=== PATIENT | female | born 1970 | race Caucasian/White ===

== ENCOUNTER 2021-10-03 15:35 | Emergency (ER) | payer SELFPAY ==
[~2021-10-03] VITALS: Ht 160 cm; Wt 58.0 kg
--- NOTE | 2021-10-03 15:55 | EKG ---
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
--- NOTE | 2021-10-03 15:58 | PHYS DOC ---
General Adult EDM: Chief Complaint: SHORTNESS OF BREATH HPI: HPI: 51-year-old female presents with chest pain and episodes of shortness of breath today. She has had 2 or 3 of these episodes. She feels a little bit of central chest discomfort up to 4 out of 10. She currently has no pain. With these epi sodes she feels like she cannot take a deep breath. She had nausea with one episode today but all that has resolved. Patient did try one of her daughters albuterol inhalers this morning with some relief. She is a smoker daily. She is on no medications. No previous cardiac history. Denies fever or chills. Review of Systems: Review of Systems: Constitutional: Denies fever or chills Eyes: Denies change in visual acuity HENT: Denies nasal congestion or sore throat Respiratory: shortness of breath Cardiovascular: Chest pain GI: Denies abdominal pain, nausea, vomiting, bloody stools or diarrhea : Denies dysuria Musculoskeletal: Denies back pain or joint pain Integument: Denies rash Neurologic: Denies headache, focal weakness or sensory changes Endocrine: Denies polyuria or polydipsia Lymphatic: Denies swollen glands Psychiatric: Denies depression or anxiety Physical Exam: PE: Constitutional: Well developed, well nourished, no acute distress, non-toxic appearance. [] HENT: Normocephalic, atraumatic, bilateral external ears normal, oropharynx moist, no oral exudates, nose normal. [] Eyes: PERRLA, EOMI, conjunctiva normal, no discharge. [] Neck: Normal range of motion, no tenderness, supple, no stridor. [] Cardiovascular: Heart rate 96, regular rhythm, no murmur [] Lungs & Thorax: Bilateral breath sounds diminished but clear to auscultation [] Abdomen: Bowel sounds normal, soft, no tenderness, no masses, no pulsatile masses. [] Skin: Warm, dry, no erythema, no rash. [] Back: No tenderness, no CVA tenderness. [] Extremities: No tenderness, no cyanosis, no clubbing, ROM intact, no edema. [] Neurologic: Alert and oriented X 3, normal motor function, normal sensory function, no focal deficits noted. [] Psychologic: Affect normal, judgement normal, mood normal. [] EKG: EKG: Sinus rhythm, rate 96, normal axis, no ST elevation or depression. [] Radiology/Procedures: Radiology/Procedures: [] Impressions: Single view of the chest. 10/03/2021 4:00 PM Indication: Shortness of breath: Comparison: None Findings: No pleural effusion, or focal infiltrate is seen heart size is normal. No definitive pneumothorax is seen. Diffuse interstitial coarsening is noted. Lucency in the lung apices likely represents emphysematous change. IMPRESSION: Diffuse interstitial coarsening and and possibly apical emphysematous changes. No other acute cardiopulmonary process seen. Electronically signed by: Geoffrey Navarro MD (10/03/2021 4:30 PM) [id number] DICTATED AND SIGNED BY: GEOFFREY NAVARRO MD DATE: 10/03/211627 CC: CANDIDO TROY DO; PCP,NO ~ Heart Score: C/O Chest Pain: Yes HEART Score for Chest Pain: HEART Score for Chest Pain Response (Comments) Value History Slighlty/Non-Suspicious 0 ECG Normal 0 Age >45 - < 65 1 Risk Factors 1 or 2 Risk Factors 1 Troponin < Normal Limit 0 Total 2 Risk Factors: Risk Factors: DM, Current or recent (<one month) smoker, HTN, HLP, family history of CAD, obesity. Risk Scores: Score 0 - 3: 2.5% MACE over next 6 weeks - Discharge Home Score 4 - 6: 20.3% MACE over next 6 weeks - Admit for Clinical Observation Score 7 - 10: 72.7% MACE over next 6 weeks - Early Invasive Strategies Course & Med Decision Making: Course & Med Decision Making Pertinent Labs and Imaging studies reviewed. (See chart for details) The patient's EKG is unremarkable. Labs are unremarkable. Troponin is negative. Chest x-ray shows some emphysematous change. See discharge for more details. No other acute findings. Not exactly sure what is causing the patient's episodes. Could be the weather changes or that she is just noticing her emphysema. I have advised that she stop smoking immediately. Have also advised that she establish with a primary physician and see a seafood clerk. She is stable for discharge at this time. [] Dragon Disclaimer: Dragon Disclaimer: This electronic medical record was generated, in whole or in part, using a voice recognition dictation system. Departure Departure: Impression: Primary Impression: Emphysema lung Disposition: 01 HOME / SELF CARE / HOMELESS Condition: STABLE Referrals: PCPKYUNG (PCP) Patient Instructions: Shortness of Breath, [id number] CANDIDO TROY DO Oct 03, 2021 15:58
[2021-10-03 16:23] LABS: BASO % 0 % (0-3); EOS % 0 % (0-3); HEMATOCRIT 39.8 % (36.0-47.0); HEMOGLOBIN 13.5 g/dL (12.0-15.5); LYMPH # 3.5 x10^3/uL (1.0-4.8); LYMPH % 35 % (24-48); MEAN CORPUSCULAR HEMOGLOBIN 34 pg (25-35); MEAN CORPUSCULAR HGB CONC 34 g/dL (31-37); MEAN CORPUSCULAR VOLUME 100 fL (79-100); MONO # 0.6 x10^3/uL (0.0-1.1); MONO % 6 % (0-9); NEUT # 5.9 x10^3uL (1.8-7.7); NEUT % 58 % (31-73); PLATELET COUNT 263 x10^3/uL (140-400); RED BLOOD COUNT 3.97 x10^6/uL (3.50-5.40); RED CELL DISTRIBUTION WIDTH 12.4 % (11.5-14.5); WHITE BLOOD COUNT 10.1 x10^3/uL (4.0-11.0)
--- NOTE | 2021-10-03 16:33 | RAD ---
Single view of the chest. 10/03/2021 4:00 PM Indication: Shortness of breath: Comparison: None Findings: No pleural effusion, or focal infiltrate is seen heart size is normal. No definitive pneumo thorax is seen. Diffuse interstitial coarsening is noted. Lucency in the lung apices likely represent s emphysematous change. IMPRESSION: Diffuse interstitial coarsening and and possibly apical emphysematous changes. No other a cute cardiopulmonary process seen. Electronically signed by: Geoffrey Hennessy MD (10/03/2021 4:30 PM) [id number]
[2021-10-03 16:38] LABS: ALBUMIN 3.9 g/dL (3.4-5.0); ALBUMIN/GLOBULIN RATIO 1.2 (1.0-1.7); CALCIUM 9.2 mg/dL (8.5-10.1); CREATININE 1.2 mg/dL (0.6-1.0); GFR 47.6; POTASSIUM 3.5 mmol/L (3.5-5.1); TOTAL BILIRUBIN 0.7 mg/dL (0.2-1.0); TOTAL PROTEIN 7.2 g/dL (6.4-8.2)
[2021-10-03 17:14] VITALS: BP 159/89
== END 2021-10-03 17:30 | disposition home or self-care (01) ==
LOC: ER 15:35
DX: J43.8 Other emphysema (principal); F17.200 Nicotine dependence, unspecified, uncomplicated
CPT/HCPCS: 36415; 71045; 80053; 84484; 85025; 93005; 99285